=== PATIENT | male | born 1990 | race African-American/Black ===

== ENCOUNTER 2025-04-18 14:02 | Emergency (ER) | payer MEDICAID ==
[~2025-04-18] VITALS: Ht 188 cm; Wt 111.1 kg
[2025-04-18 14:17] VITALS: BP 165/99; TEMP 97.9
[2025-04-18] MEDS ORDERED: ALBU1.257 NEB (14:26)
[2025-04-18] MEDS ORDERED: MONT10TA22 PO (14:26)
[2025-04-18 15:14] VITALS: O2SAT 96
[2025-04-18] MEDS ORDERED: ALBU8.5H8 INH (19:51)
== END 2025-04-18 15:02 | disposition home or self-care (01) ==
LOC: ER 14:11
DX: J45.909 Unspecified asthma, uncomplicated (principal); Z76.0 Encounter for issue of repeat prescription; F12.90 Cannabis use, unspecified, uncomplicated; Z79.899 Other long term (current) drug therapy